=== PATIENT | female | born 1980 | race Caucasian/White ===

== ENCOUNTER 2021-02-22 15:59 | Emergency (ER) | payer BC, OTHER ==
[2021-02-22] MEDS: Lactated Ringers 1,000 ML IV SCH (16:54)
[2021-02-22] MEDS: Sodium Chloride 0.9% 10 ML Syringe FLUSH PRN (16:55)
[2021-02-22] MEDS: Sodium Chloride 0.9% 10 ML Syringe FLUSH ONE (17:28)
[2021-02-22] MEDS: Iopamidol 612 MG/ML 150 ML Bottle IV SCH (17:28)
[2021-02-22] MEDS: Sodium Chloride 0.9% 80 ML IV SCH (17:28)
[2021-02-22] MEDS: fentaNYL 100 MCG/2 ML SDV IVPUSH ONE (17:46)
--- NOTE | 2021-02-22 18:19 | CRLCT ---
For Patients: As a result of the Century Cures Act, medical imaging exams and procedure reports are released immediately into your electronic medical record. You may view this report before your referring provider. If you have questions, please contact your health care provider. INDICATION: Epigastric abdomen pain. History of Char-en-Y gastric bypass. TECHNIQUE: CT abdomen and pelvis acquired with 134 cc Isovue-300 IV contrast. COMPARISON: None. FINDINGS: Lower chest: Unremarkable. Liver: There are geographic areas of fatty infiltration. No masses. Liver is normal in size. Gallbladder and bile ducts: Unremarkable. No stones or inflammation. No biliary dilatation. Pancreas: Unremarkable. No mass or inflammation. Spleen: Unremarkable. Normal in size. No masses. Adrenal glands: Unremarkable. No nodules. Kidneys: Unremarkable. No suspicious masses, stones, or hydronephrosis. GI tract: Char-en-Y gastric bypass changes are present and unremarkable. The GI tract is normal in caliber without mass or focal inflammation. Normal appendix. Vasculature: Unremarkable. Mesenteric arteries are patent. Lymph nodes: No lymphadenopathy. Omentum/Peritoneum/Abdominal Wall: Unremarkable. No sign of mass or infiltration. No free air or significant free fluid. Pelvis: Unremarkable. Bones: Unremarkable for age. IMPRESSION: No acute or specific findings to explain epigastric abdomen pain. Specifically the GI tract is unremarkable. Please note that all CT scans at this facility use dose modulation, iterative reconstruction, and/or weight-based dosing when appropriate to reduce radiation dose to as low as reasonably achievable. Dictated by Dany Osorio MD @ 02/22/2021 6:17:53 PM (Electronically Signed)
--- NOTE | 2021-02-22 18:27 | EDM.PDOC ---
ED HPI GENERAL MEDICAL PROBLEM - General Chief Complaint: Gastrointestinal Problem Stated Complaint: VOMITING Time Seen by Provider: 02/22/21 16:37 Source of Information: Reports: Patient, Family, Old Records, RN Notes Reviewed History Limitations: Reports: No Limitations - History of Present Illness INITIAL COMMENTS - FREE TEXT/NARRATIVE: 40-year-old female presents emergency department today complaint of epigastric pain with some emesis. She is a recent Char-en-Y surgery. done in [place] this summer, states she has had some emesis with epigastric pain, initially evaluated at [facility] blood work urinalysis hCG done all unremarkable patient states "was told she has Covid symptoms" unfortunately no records of providers notes were available at the time reviewing the record - Related Data Allergies Allergy/AdvReac Type Severity Reaction Status Date / Time No Known Allergies Allergy Verified 02/22/21 16:33 Home Meds: Home Meds Cholecalciferol (Vitamin D3) [Vitamin D3] 1 ml MC DAILY 02/22/21 [History] Levothyroxine 112 mcg PO DAILY 02/22/21 [History] Liothyronine [Cytomel] 5 mcg PO DAILY 02/22/21 [History] Multivitamin 1 each PO DAILY 02/22/21 [History] Ondansetron [Zofran ODT] 4 mg PO Q6H PRN 02/22/21 [History] Sertraline [Zoloft] 50 mg PO BEDTIME 02/22/21 [History] Past Medical History HEENT History: Reports: Impaired Vision Gastrointestinal History: Reports: Hiatal Hernia Genitourinary History: Reports: None MERINGUER History: Reports: Musculoskeletal History: Reports: None Neurological History: Reports: Migraines Psychiatric History: Reports: Anxiety, Depression Endocrine/Metabolic History: Reports: Hypothyroidism - Infectious Disease History Infectious Disease History: Reports: Chicken Pox - Past Surgical History Head Surgeries/Procedures: Reports: None HEENT Surgical History: Reports: None GI Surgical History: Reports: Bariatric Procedure Female Surgical History: Reports: Salpingo-Oophorectomy Endocrine Surgical History: Reports: None Neurological Surgical History: Reports: None Musculoskeletal Surgical History: Reports: Other (See Below) Dermatological Surgical History: Reports: None Social & Family History - Tobacco Use Tobacco Use Status *Q: Never Tobacco User Second Hand Smoke Exposure: No - Caffeine Use Caffeine Use: Reports: None - Recreational Drug Use Recreational Drug Use: No ED ROS GENERAL - Review of Systems Review Of Systems: See Below Constitutional: Reports: No Symptoms Respiratory: Reports: No Symptoms Cardiovascular: Reports: No Symptoms GI/Abdominal: Reports: Abdominal Pain, Nausea, Vomiting ED EXAM, GI/ABD - Physical Exam Exam: See Below Exam Limited By: No Limitations General Appearance: Alert, WD/WN, No Apparent Distress Respiratory/Chest: No Respiratory Distress, Lungs Clear, Normal Breath Sounds, No Accessory Muscle Use, Chest Non-Tender Cardiovascular: Regular Rate, Rhythm, No Murmur GI/Abdominal Exam: Soft, Tender (Gastric) Course - Vital Signs Last Recorded V/S: Last Vital Signs Temp 97.0 F 02/22/21 16:36 Pulse 61 02/22/21 16:36 Resp 16 02/22/21 16:36 BP 130/86 02/22/21 16:36 Pulse Ox 100 02/22/21 16:36 - Orders/Labs/Meds Orders: Active Orders 24 hr Category Date Time Status Peripheral IV Care [RC] . DIRECTED Care 02/22/21 16:41 Active Iopamidol [Isovue-300 (61%)] Med 02/22/21 17:15 Active 134 ml IV . DIRECTED Lactated Ringers [Ringers, Lactated] 1,000 ml Med 02/22/21 16:45 Active IV ASDIRECTED Sodium Chloride 0.9% [Saline Flush] Med 02/22/21 16:41 Active 10 ml FLUSH ASDIRECTED PRN Peripheral IV Insertion Adult [OM.PC] Urgent Oth 02/22/21 16:41 Ordered Medication Orders Lactated Ringer's (Ringers, Lactated) 1,000 mls @ 500 mls/hr IV ASDIRECTED ULICES Last Admin: 02/22/21 16:54 Dose: 500 mls/hr Documented by: AMPARO Iopamidol (Iopamidol 612 Mg/Ml 150 Ml Bottle) 134 ml IV . DIRECTED ULICES Stop: 02/22/21 21:00 Last Admin: 02/22/21 17:28 Dose: 134 ml Documented by: GELA Sodium Chloride (Sodium Chloride 0.9% 10 Ml Syringe) 10 ml FLUSH ASDIRECTED PRN PRN Reason: Keep Vein Open Last Admin: 02/22/21 16:55 Dose: 10 ml Documented by: AMPARO Labs: Laboratory Tests 02/22/21 02/22/21 Range/Units 16:45 16:45 Lactic Acid 0.9 (0.4-2.0) mmol/L Lipase 207 (73-393) U/L Meds: Medications Generic Name Dose Route Start Last Admin Trade Name Colin PRN Reason Stop Dose Admin Lactated Ringer's 1,000 mls @ 500 mls/hr 02/22/21 16:45 02/22/21 16:54 Ringers, Lactated IV 500 mls/hr ASDIRECTED ULICES Administration Iopamidol 134 ml 02/22/21 17:15 02/22/21 17:28 Iopamidol 612 Mg/Ml 150 Ml Bottle IV 02/22/21 21:00 134 ml . DIRECTED ULICES Administration Sodium Chloride 10 ml 02/22/21 16:41 02/22/21 16:55 Sodium Chloride 0.9% 10 Ml Syringe FLUSH 10 ml ASDIRECTED PRN Administration Keep Vein Open Discontinued Medications Generic Name Dose Route Start Last Admin Trade Name Colin PRN Reason Stop Dose Admin Fentanyl 50 mcg 02/22/21 17:40 02/22/21 17:46 Fentanyl 100 Mcg/2 Ml Sdv IVPUSH 02/22/21 17:41 50 mcg ONETIME ONE Administration Sodium Chloride 80 mls @ 3.5 mls/sec 02/22/21 17:15 02/22/21 17:28 Normal Saline IV 02/22/21 17:16 3.5 mls/sec ASDIRECTED ULICES Administration Sodium Chloride 10 ml 02/22/21 17:13 02/22/21 17:28 Sodium Chloride 0.9% 10 Ml Syringe FLUSH 02/22/21 17:14 10 ml ONETIME ONE Administration Departure - Departure Time of Disposition: 18:26 Disposition: Home, Self-Care 01 Condition: Fair Clinical Impression: Epigastric abdominal pain - Discharge Information Instructions: Abdominal Pain, Adult, [id number] Referrals: Nilsa Macias MD [Primary Care Provider] - Additional Instructions: Please contact your gastric bypass surgeon's office in the morning for further evaluation and treatment call return to the emergency department worsening symptoms Sepsis Event Note (ED) - Focused Exam Vital Signs: Vital Signs Temp Pulse Resp BP Pulse Ox 02/22/21 16:36 97.0 F 61 16 130/86 100 02/22/21 16:28 97.0 F 61 16 130/86 100 - My Orders Last 24 Hours: My Active Orders 02/22/21 16:41 Peripheral IV Care [RC] . DIRECTED Sodium Chloride 0.9% [Saline Flush] 10 ml FLUSH ASDIRECTED PRN Peripheral IV Insertion Adult [OM.PC] Urgent 02/22/21 16:45 Lactated Ringers [Ringers, Lactated] 1,000 ml IV ASDIRECTED 02/22/21 17:15 Iopamidol [Isovue-300 (61%)] 134 ml IV . DIRECTED - Assessment/Plan Last 24 Hours: My Active Orders 02/22/21 16:41 Peripheral IV Care [RC] . DIRECTED Sodium Chloride 0.9% [Saline Flush] 10 ml FLUSH ASDIRECTED PRN Peripheral IV Insertion Adult [OM.PC] Urgent 02/22/21 16:45 Lactated Ringers [Ringers, Lactated] 1,000 ml IV ASDIRECTED 02/22/21 17:15 Iopamidol [Isovue-300 (61%)] 134 ml IV . DIRECTED Plan: Assessment Acuity = acute Site and laterality = epigastric abdominal pain Etiology = unknown Manifestations = none Location of injury = Home Lab values = lipase within normal limits lactic acid within normal limits CT scan of the abdomen reveals no acute process Plan I did review lab work CT scan results with her asked her to follow-up with her gastric bypass surgeon tomorrow This note was dictated using [employer] voice recognition software please call with any questions on syntax or grammar.
== END 2021-02-22 18:34 | disposition home or self-care (01) ==
LOC: JP.ED 15:59
DX: R10.13 Epigastric pain (principal); R11.10 Vomiting, unspecified; E03.9 Hypothyroidism, unspecified; G43.909 Migraine, unspecified, not intractable, without status migrainosus; Z79.899 Other long term (current) drug therapy
CPT/HCPCS: 36415; 74177; 83605; 83690; 96374; 99284; J3010; J7120; Q9967